=== PATIENT | female | born 2005 | race Two or more races ===

== ENCOUNTER → 2024-05-01 | Outpatient (CLI) | payer MEDICAID, SELFPAY ==
--- NOTE | 2024-05-01 | XR_ITS ---
Examination: CT abdomen, without intravenous contrast. CT abdomen, with intravenous contrast. Sagittal and coronal 2-D reconstructions. Time of exam:May 01, 2024 1111 hours INDICATIONS: Diagnosis unspecified disorder adrenal glands, elevated testosterone levels on laboratory examination 2 months ago CTDI: vol (mGy) 10.1 DLP: (mGycm) 326 Technique: Multiple 3.0 mm axial noncontrast images of the abdomen have been obtained. Multiple 3.0 mm axial images post administration 60 cc Isovue-[id number] intravenous contrast have been obtained. Sagittal and coronal 3-D reconstructions have been obtained. Low dose protocols were performed. One or more of the following dose reduction techniques were used; automated exposure control, adjustment of the mA and/or KV according to patient size, use of iterative reconstruction technique. Findings: No focal liver or splenic lesions No gallstones No pancreatic or adrenal mass No renal or ureteral calculi, no hydronephrosis Aorta normal size No bowel obstruction IMPRESSION: No adrenal or other abdominal mass
[2024-05-01 08:29] LABS: HCG Qualitative,Urine Negative
== END | disposition home or self-care (01) ==
PROVIDERS: PCP Physician Assistant; Referring Provider Physician Assistant; Visit Provider Pediatrics
DX: E27.9 Disorder of adrenal gland, unspecified (principal); Z32.00 Encounter for pregnancy test, result unknown
CPT/HCPCS: 74170; 81025; A4649; Q9967

== ENCOUNTER → 2024-07-06 | Outpatient (CLI) | payer MEDICAID, SELFPAY ==
[2024-07-05 18:01] LABS: HCG Qualitative,Urine Negative
--- NOTE | 2024-07-06 07:30 | XR_ITS ---
Examination: MRI abdomen with intravenous contrast. MRI abdomen without intravenous contrast. 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 Transverse images, TR 6020, TE 107. T1 weighted transverse images, TR 582, TE 9.5. T2-weighted sagittal images, TR 4000, TE 105. T2-weighted sagittal images, TR 4000, TE 5. Coronal images, TR 4210, TE 107. Axial and coronal images are obtained post 18 cc intravenous injection, gadolinium. Findings: Hepatomegaly 17 cm No gallstones No extrahepatic biliary tract dilatation No pancreatic mass Normal adrenal glands No hydronephrosis Postcontrast images demonstrate no abnormal enhancing liver splenic or renal lesion No lymphadenopathy No ascites IMPRESSION: Hepatomegaly, 17 cm Normal adrenal glands
--- NOTE | 2024-07-06 07:30 | XR_ITS ---
Examination: MRI pelvis with intravenous contrast. MRI pelvis without intravenous contrast. 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 Transverse images, TR 6020, TE 107. T1 weighted transverse images, TR 582, TE 9.5. T2-weighted sagittal images, TR 4000, TE 105. T2-weighted sagittal images, TR 4000, TE 5. Coronal images, TR 4210, TE 107. Axial and coronal images are obtained post 18 cc intravenous injection, gadolinium. Findings: Uterus normal size, anteverted Endometrial stripe 11 mm No uterine mass Bilateral small ovarian follicular cysts, the largest on the left side 14 mm on the right side 12 mm No free fluid in the cul-de-sac Rectal wall is not thickened No presacral mass Urinary bladder intact Osseous structures intact IMPRESSION: No pelvic mass
== END | disposition home or self-care (01) ==
LOC: SMRI 07:19
PROVIDERS: PCP Internal Medicine Cardiovascular Disease; Referring Provider Pediatrics; Visit Provider Pediatrics
DX: R16.0 Hepatomegaly, not elsewhere classified (principal); C74.90 Malignant neoplasm of unspecified part of unspecified adrenal gland; Z32.00 Encounter for pregnancy test, result unknown
CPT/HCPCS: 72197; 74183; 81025; A9579